=== PATIENT | female | born 1940 | race Caucasian/White ===

== ENCOUNTER 2024-08-07 19:17 | Inpatient (IN) | payer MEDICARE, SELFPAY ==
[2024-08-07] VITALS (8 sets, daily range): BP systolic 126–147; BP diastolic 47–76; BMI 27.5; BMI 27.1
--- NOTE | 2024-08-07 15:28 | ED.GENMED ---
History of Present Illness
General
Chief Complaint: Change in Mental Status
Source: patient and ambulance crew
Exam Limitations: clinical condition
Time Seen by Provider: 08/07/24 15:07
History of Present Illness
History of Present Illness:
84 y/o F
from EMS
found on the ground today by family
she apparently was last seen on 08/05 evening by family according to EMS
pt has had a skin rash for weeks, blistering and scabbing
the pt apparently lives in hoarding conditions
she says she ambulates with a cane at baseline
she cannot recall exactly how she ended up on the ground
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
she is not having numbness now or pain
pt was soaked in urine
stable vitals
she believes it is december
Past History
Past History
ED Past Medical History: None
ED Past Surgical History: None
Social History
Tobacco: Non-smoker
Review of Systems
Review of Systems
Allergies reviewed?: Yes
Other source history: family
All Other Systems: Not applicable
Phy Exam
Physical Exam
Physical Exam:
GENERAL: Alert , very poorly kept, malodorous;
HEAD: NCAT
NECK: no midline tenderness, active ROM intact, no paraspinal muscle tenderness;
EYE: pupils equal and reactive, EOMs intact.
ENT: o/p clr, dry mouth no hemotympanum
CARDIAC: Regular rate and rhythm, no edema
LUNGS: Clear breath sounds bilaterally, no acute respiratory distress, no wheezes/rales/rhonchi
ABDOMEN: Soft, without focal tenderness, no r/g, no cvat
NEUROLOGICAL: Alert and oriented x 3, no focal neuro deficits, CN intact, 5/5 strength, sensation intact
SKIN: Warm and dry,
scabbed lesions all over body and some skin sloughing vs. bursed bullae vs. burned looking skin, bruising R back nontender
larged lesion is on RUE and R hip
scalded skin??
MUSCULOSKELETAL: No edema, well perfused.
PSYCH: Normal and appropriate interaction.
Sepsis
Sepsis Screening
Sepsis Assessment: Sepsis
Sepsis Screen
Sepsis Screen: Sepsis
Date: 08/07/24
Time: 23:18
Course
Orders/Labs/Results
Orders:
Orders
08/07/24 Dinner
Regular
At Your Request: Full Participation
08/07/24 15:21
Electrocardiogram (*1) Urgent
Reason for Study: Other
Other Reason for Exam: sepsis
Cardiac Monitoring- Treatment ONCE
EKG- Treatment ONCE
Mccormack Placement- Treatment ONCE
Reason for insertion: I&O's Critical Care
08/07/24 15:22
Vickie Hugger [Vickie Hugger-Treatment] ONCE
Patient's goal temperature:: 36.1 C
Additional Instructions:: Temperature and skin assessment per unit protocol
0.9% Sodium Chloride 1000 ml [Nss] 1,000 ml IV BOLUS
08/07/24 15:33
CT Cervical Spine W/o Iv Contr Urgent
Comment:
Reason For Exam: foud on ground
CT Chest/abd/pel W Iv Cont Urgent
Comment:
Reason For Exam: found on ground, bruising R posterior upper back,
CT Head W/o Iv Contrast Urgent
Comment:
Reason For Exam: found on ground, altered
08/07/24 15:34
COVID-19 Antigen Urgent
Source: Nasal Swab
CPK [Creatine Phosphokinase] Urgent
Complete Blood Count/With Diff Urgent
Comprehensive Metabolic Panel Urgent
Lactic Acid Q4H
Comment: CANCEL 2nd LACTIC ACID IF 1st LACTIC ACID IS LESS THAN 2
Magnesium Urgent
PTT Urgent
Prothrombin Time Urgent
Troponin I Urgent
Influenza A+B Rapid Molecular Urgent
MARIANN Source: Nasal Swab
Specimen Description:
08/07/24 15:38
Urinalysis Reflex To Culture Urgent
Date Specimen was Collected: 08/07/24
Time Specimen was Collected: 15:37
Urine Microscopic Reflex Cult Urgent
Urine Culture Urgent
MARIANN Source: U
Specimen Description:
Date Specimen was Collected: 08/07/24
Time Specimen was Collected: 15:37
08/07/24 15:46
Blood Culture Q30M
MARIANN Source: Blood/Venous
Specimen Description:
08/07/24 16:19
CefTRIAXone [Rocephin] 1,000 mg IV NOW STA
08/07/24 18:53
Enema As Directed
Type: Milk and molasses
Amount: 1
08/07/24 18:55
Admit/Transfer Patient As Directed
Co-Sign Provider:
Level of Care: Inpatient admission
Assign to:: Telemetry
Physician / Group: Tucker Burt
Diagnosis: hypothermia, change in mental, constipation
Reason for Telemetry: Arrhythmia
Date to Stop Telemetry: 08/10/24
Time to Stop Telemetry: 11:00
Reason for Hospitalization: hypothermia, change in mental, constipation
Expected length of stay greater than two midnights?: Yes
ELOS- Estimated Length of Stay in days: 3
I certify the patient meets the requirements for IP care: Yes
08/07/24 18:56
PRN Pain Medication Management As Directed
May give lesser potent ordered pain med per pt: Yes
preference::
Protocol:: Medication orders for pain may be administered in a
manner that supports deferring to patient preference
when the pt is:
- Requesting an ordered lesser potent pain medication.
Least to most potent pain medications are defined
as: acetaminophen < NSAID < tramadol < opioids
(morphine, oxycodone, hydromorphone).
- Requesting a lesser dose of the same medication IF
ORDERED.
- Requesting a less intrusive route of administration
if both routes are prescribed by the provider (PO <
IV).
08/07/24 18:57
Code Status As Directed
Resuscitation Status: Full Code
08/07/24 19:35
Lactic Acid Q4H
Comment: CANCEL 2nd LACTIC ACID IF 1st LACTIC ACID IS LESS THAN 2
08/07/24 20:53
Acetaminophen [Tylenol] 650 mg PO Q4HPRN PRN
Lactated Ringers [Lr] 1,000 ml IV 100 mls/hr
08/07/24 20:53
WOUND/OSTOMY CONSULT Routine
Reason for Consult: diffuse rash with openings over entire body
Activity As Directed
Activity Level: Out of Bed-Early Mobility
Orthostatic Vital Signs As Directed
Orthostatic VS Frequency: BID
Vital Signs As Directed
Frequency: Per unit guidelines
Weight As Directed
Frequency: Once
OT Consult [Ot Eval And Treat] Routine
PT Consult [Pt Eval And Treat] Routine
Activity Level: Out of Bed-Early Mobility
DX Deep Vein Thrombosis Video Routine
08/08/24 06:00
Complete Blood Count/No Diff IN AM
Comprehensive Metabolic Panel IN AM
Creatine Phosphokinase IN AM
Vitamin B12 IN AM
08/08/24 18:00
CefTRIAXone [Rocephin] 1,000 mg IV Q24H
Enoxaparin Sodium [Lovenox] 40 mg SC QPM
08/09/24 06:00
Complete Blood Count/No Diff IN AM
Comprehensive Metabolic Panel IN AM
08/10/24 06:00
Complete Blood Count/No Diff IN AM
Comprehensive Metabolic Panel IN AM
08/10/24 11:00
DC Protocol for Telemetry ONCE
Abnormal Lab Results
08/07/24 08/07/24
15:34 15:38
WBC 15.0 H 10^3/uL
(4.8-10.8)
MCHC 32.0 L g/dL
(33.0-37.0)
Plt Count 440 H 10^3/uL
(130-400)
MPV 11.3 H fL
(7.4-10.4)
Absolute Neuts (auto) 12.8 H 10^3/uL
(1.4-6.5)
Absolute Lymphs (auto) 1.1 L 10^3/uL
(1.2-3.4)
Absolute Monos (auto) 1.1 H 10^3/uL
(0.1-0.6)
Neutrophils % 85.1 H %
(42.2-75.2)
Lymphocytes % 7.1 L %
(20.5-51.1)
PT 14.7 H Sec
(11.4-14.6)
APTT 35.9 H Sec
(23.4-35.0)
Carbon Dioxide 21 L mmol/L
(22-30)
BUN 22 H mg/dl
(7-17)
Glucose 117 H mg/dl
(70-99)
AST 64 H U/L
(14-36)
Creatine Kinase 572 H U/L
(30-135)
Troponin I 0.042 H* ng/ml
Total Protein 5.3 L g/dl
(6.3-8.2)
Albumin 3.0 L g/dl
(3.5-5.0)
Urine Ketones 3+ A
(Negative)
Ur Occult Blood Reflex 3+ A
(Negative)
Leukocyte Esterase Rfl 3+ A
(Negative)
Urine RBC 7-10 A /HPF
(0-2)
Urine WBC (Reflex) 26-30 A /HPF
(0-5)
Urine Bacteria (Reflex) Many A
(Negative)
Urine Albumin (Reflex) 3+ A
(Neg - Trace)
08/07/24 15:34
08/07/24 15:34
Vital Signs
Initial and Last Documented VS:
Initial Vital Signs
Temp Pulse Resp BP Pulse Ox
33.8 C L 81 20 128/60 92
08/07/24 15:11 08/07/24 15:11 08/07/24 15:11 08/07/24 15:11 08/07/24 15:11
Last Documented Vital Signs
Temp Pulse Resp BP Pulse Ox
35.4 C L 94 16 147/55 96
08/07/24 22:59 08/07/24 21:00 08/07/24 21:00 08/07/24 21:00 08/07/24 21:00
MDM/Problems Addressed
Differential Diagnosis Includes:
rhabdo, uti, sepsis, dehydration, scalded skin syndrome
MDM/Problems Addressed:
nicho wick 84 y/o F htn, hld but takes no meds; lives alone, hoarding conditions; family checks on her 1 time per week and bring food
she was found on ground today; prob fell monday night;
hypothermic 92, normal bp/other vitals
some mild confusion
bruising R upper back
no complaints
says she fell after having diarrhea and sitting on toilet and her leg fell asleep
she has a horrible rash that has been there prob a few weeks; may be contact derm from concentrated detergent; scabbed over some, some bullae that ruptured;
w/u here is wbc 15, urine +, cpk 500s; nl cr
trop minimal 0.04
lawrence scan neg.
rocephin, IVF, bairhugger
*Critical Care Note
Total Time (30-74mins, 75-104mins- exclusive of procedures): Not Applicable
ED Attending Note
-
Portions of this chart may have been created with voice recognition software.� Occasional wrong word or��sound alike� substitutions may have occurred due to the inherent limitations of voice recognition software.
Discharge Plan
Departure
Patient Disposition: Admit
Date of Disposition: 08/07/24
Time of Disposition: 17:21
Admit to: IMU
Presentation/result/management discussed w/ accepting MD/DO: Hospitalist
Condition: Fair
Covid-19: Negative COVID-19
Discharge Problem:
UTI (urinary tract infection), Sepsis, Rash, skin, Rhabdomyolysis
Interventions
Interventions:
*Risk Screen - Suicide Last Done: 08/07/24 19:29
*General Assessment Last Done: 08/07/24 15:58
*Neglect/Abuse Screening Last Done: 08/07/24 15:58
ED- Fall Risk Assessment Last Done: 08/07/24 21:00
*ED COVID-19 Vaccine History Last Done: 08/07/24 17:40
*Nursing Disposition Last Done: 08/07/24 21:00
ED- Pulmonary Assessment Last Done: 08/07/24 21:00
ED- Neurological Assessment Last Done: 08/07/24 17:37
ED- Cardiac Assessment Last Done: 08/07/24 21:00
Discharge Date and Time
Discharge Date/Time: 08/07/24 21:00
[2024-08-07 15:48] LABS: % Basophils 0.3 % (0-2); % Eosinophils 0.1 % (0-6); % Immature Granulocytes 0.3 % (0-0.5); % Lymphocytes 7.1 % (20.5-51.1); % Monocytes 7.1 % (1.7-9.3); % Neutrophils 85.1 % (42.2-75.2); Absolute Basophils 0.1 10^3/uL (0-0.2); Absolute Lymphocytes 1.1 10^3/uL (1.2-3.4); Absolute Monocytes 1.1 10^3/uL (0.1-0.6); Absolute Neutrophils 12.8 10^3/uL (1.4-6.5); Hematocrit 39.1 % (37.0-47.0); Hemoglobin 12.5 g/dL (12.0-16.0); Mean Corpuscular Volume 84.4 fL (81.0-99.0); Mean Platelet Volume 11.3 fL (7.4-10.4); Nucleated Red Blood Cells % 0 %; Platelet Count 440 10^3/uL (130-400); Red Blood Cell Count 4.63 10^6/uL (4.20-5.40); Red Cell Dist. Width 14.5 % (11.5-14.5)
[2024-08-07] MEDS: NSS 1000 IV (15:48)
[2024-08-07 15:56] LABS: Urine Albumin 3+ (Neg - Trace); Urine Bilirubin Negative (Negative); Urine Glucose Negative (Negative); Urine Ketone 3+ (Negative); Urine Leukocyte 3+ (Negative); Urine Nitrite Negative (Negative); Urine Occult Blood 3+ (Negative); Urine Specific Gravity 1.015 (<1.030); Urine Urobilinogen 1+ (Neg - 1+)
[2024-08-07 15:57] LABS: Urine Character Very Cloudy (Clear); Urine Color Yellow
[2024-08-07 15:58] LABS: PT 14.7 Sec (11.4-14.6)
[2024-08-07 15:59] LABS: APTT 35.9 Sec (23.4-35.0)
[2024-08-07 16:00] LABS: ALT (SGPT) 27 U/L (0-35); AST (SGOT) 64 U/L (14-36); Alkaline Phosphatase 112 U/L (38-126); Blood Urea Nitrogen 22 mg/dl (7-17); Calcium 8.8 mg/dl (8.4-10.2); Carbon Dioxide 21 mmol/L (22-30); Chloride 106 mmol/L (98-107); Creatine Phosphokinase 572 U/L (30-135); Estimated Creatinine Clearance 53 ml/min; Glucose 117 mg/dl (70-99); Magnesium 2.3 mg/dl (1.6-2.3); Sodium 140 mmol/L (135-145); Total Bilirubin 0.6 mg/dl (0.2-1.3); Total Protein 5.3 g/dl (6.3-8.2); eGFR > 60.00
[2024-08-07 16:12] LABS: COVID-19 Antigen Negative (Negative)
[2024-08-07 16:14] LABS: Troponin I 0.042 ng/ml
[2024-08-07 16:17] LABS: Urine Bacteria Many (Negative); Urine Squamous Cell 16-20 /LPF (Few); Urine White Cell 26-30 /HPF (0-5)
[2024-08-07] MEDS: ROCEPHIN 1000 MG IV (17:26)
--- NOTE | 2024-08-07 18:03 | HPS.HSE ---
Family Physician
-
Family Physician: NOT KNOW UNKNOWN - PT DOES
Chief Complaint
-
change in mental status
History of Present Illness
Patient is a 84-year-old female with no significant past medical history who presented to [facility] ED for evaluation of change in mental status s/p fall and down for >24 hours. Patient son and daughter at bedside to assist with HPI.
Patient was last known at baseline Monday evening around 7-8pm. There was no contact with her yesterday (Monday) and family found her down this afternoon with a change in mental status. She mentioned to family that the 'witch' was there. Patient
presents with a diffuse rash and possible chemical burn over entire body. Daughter describes patient utilizing concentrated detergent to clean close and going through it in less than a week. Multiple open areas. Daughter reports multiple episodes of
diarrhea in the past week, with some incontinence. Patient denies any fever, chills, cough, chest pain, nausea, vomiting, constipation or urinary symptoms.
Medical History
Past Medical History
Past Medical History: Reports None
Past Surgical History: Reports None
Social History
Tobacco: Former Smoker
Alcohol: None
Drug: None
Living: Alone
Family History
Family History: Not pertinent and Unable to Obtain
Allergies / Home Medications
Allergies reflects when Allergies were last updated in [facility].
Home Medications with original date entered in [facility]
Allergy/Medication List:
Allergies
Allergy/AdvReac Type Severity Reaction Status Date / Time
adhesive Allergy Rash Verified 02/15/17 14:18
Home Medications
ascorbic acid (vitamin C) 500 mg tablet (Vitamin C) 500 mg PO DAILY 08/07/24
cholecalciferol (vitamin D3) 25 mcg (1,000 unit) tablet (Vitamin D3) 25 mcg PO DAILY 08/07/24
garlic 100 mg tablet 100 mg PO DAILY 08/07/24
multivitamin 1 tab PO DAILY 08/07/24
selenium 50 mcg tablet 50 mcg PO DAILY 08/07/24
turmeric 400 mg capsule 1 mg PO DAILY 08/07/24
Review of Systems
-
History Source: Patient and Family
Constitutional: Reports No Symptoms
EENT: Reports No Symptoms
Respiratory: Reports No Symptoms
Cardiac: Reports No Symptoms
Abdomen/GI: Reports Diarrhea
: Reports No Symptoms
Musculoskeletal: Reports No Symptoms
Skin: Reports Itching and Rash (diffuse over entire body )
Neurological: Reports No Symptoms
Endocrine: Reports No Symptoms
Hematologic/Lymphatic: Reports No Symptoms
Psych: Reports No Symptoms
Physical Exam
Vital Signs
Vital Signs
Temp Pulse Resp BP Pulse Ox
92.9 F L 89 4 130/64 96
08/07/24 15:11 08/07/24 17:37 08/07/24 15:21 08/07/24 15:47 08/07/24 17:37
Physical Exam
General: Well Developed, Well Nourished, No Apparent Distress, Comfortable and Conversant
HEENT: NormoCephalic, Moist mucous membranes, Atraumatic, [place] Conjunctivae, Nose Appears Normal and Ears Appear Normal
Respiratory: Clear and Non Labored Respirations
Cardiac: S1/S2 and Regular Rhythm; No Murmur, Rub or Gallop
Breast: Deferred by me
GI: Soft, Non Tender and Non Distended; No Organomegaly
Rectal: Deferred by Provider
Genito-urinary: Deferred by me
Musculoskeletal: No Clubbing, No Cyanosis and No Edema
Skin: Warm, Rash (diffuse rash with openings over entire body) and IV/Catheter Site
Neuro: Awake, Alert, AO x 3 and Nonfocal/grossly intact
Psych: Calm
Laboratory Results
-
08/07/24 15:34
08/07/24 15:34
Laboratory Results
PT 14.7 Sec (11.4-14.6) H 08/07/24 15:34
INR 1.10 08/07/24 15:34
APTT 35.9 Sec (23.4-35.0) H 08/07/24 15:34
Lactic Acid 2.0 mmol/L (0.7-2.0) 08/07/24 15:34
Total Bilirubin 0.6 mg/dl (0.2-1.3) 08/07/24 15:34
AST 64 U/L (14-36) H 08/07/24 15:34
ALT 27 U/L (0-35) 08/07/24 15:34
Alkaline Phosphatase 112 U/L (38-126) 08/07/24 15:34
Troponin I 0.042 ng/ml H* 08/07/24 15:34
Data Reviewed
-
CT Scan: Report Reviewed by me (C-spine: No fracture identified. Degenerative changes.; Chest/Abd/Pelvis: No acute intrathoracic, abdominal, or pelvic injury appreciated. No osseous fracture. Degenerative changes, as described. Posterior upper
right chest wall soft tissue edema/contusion. Hiatal hernia. Rectal fecal impactio) and Other (Head CT: No acute intracranial abnormality noted. Chronic findings as described. No skull fracture.)
Medical Tests (Nuc Med, Echo, EKG etc): Report Reviewed by me (EKG: NORMAL SINUS RHYTHM RIGHT BUNDLE BRANCH BLOCK LEFT ANTERIOR FASCICULAR BLOCK BIFASCICULAR BLOCK MINIMAL VOLTAGE CRITERIA FOR LVH, MAY BE NORMAL VARIANT ( R in aVL ))
Lab Data: Labs Reviewed by me (WBC 15.0, CK 572, trop 0.042, )
Impression/Plan
-
IMPRESSION/PLAN:
#mechanical fall
#change in mental status
Head CT: No acute intracranial abnormality noted.
Chronic findings as described.
No skull fracture.
Chest/Abd/Pelvis CT: No acute intrathoracic, abdominal, or pelvic injury appreciated.
No osseous fracture.
Degenerative changes, as described.
Posterior upper right chest wall soft tissue edema/contusion.
Hiatal hernia.
Rectal fecal impaction.
Diverticulosis without acute diverticulitis.
C-Spine CT: No fracture identified.
Degenerative changes.
EKG: NORMAL SINUS RHYTHM
RIGHT BUNDLE BRANCH BLOCK
LEFT ANTERIOR FASCICULAR BLOCK
BIFASCICULAR BLOCK
MINIMAL VOLTAGE CRITERIA FOR LVH, MAY BE NORMAL VARIANT ( R in aVL )
WBC 15.0
CK 572
Trop 0.042
- Admit to telemetry
- LR 100cc/hr
- ECHO in AM
- orthostatic VS
- consult wound care
- consult PT/OT
- IV Rocephin
- AM labs
#constipation
Chest/Abd/Pelvis CT: No acute intrathoracic, abdominal, or pelvic injury appreciated.
No osseous fracture.
Degenerative changes, as described.
Posterior upper right chest wall soft tissue edema/contusion.
Hiatal hernia.
Rectal fecal impaction.
Diverticulosis without acute diverticulitis.
- MOM enema
- if MOM ineffective in 6 hours consider another enema
#hypothermia
T 92.9
- karol hugger
Code status: Full code
DVT prophylaxis: Lovenox sq
[2024-08-07 19:51] LABS: Lactic Acid 1.2 mmol/L (0.7-2.0)
--- NOTE | 2024-08-07 21:12 | W.PN.UPDATE ---
Update Note
Progress Note Update
This note serves as an addendum to the H&P by Chiqui Crowley on August 07, 2024.
History of Presenting Illness
84-year-old female with no significant past medical history (confirmed by patient's son and daughter) who presented to [facility] ED for evaluation of change in mental status s/p fall and down for >24 hours. Patient son and daughter were
present in the emergency room and helped with the history. Patient was last known at baseline about 44 hours prior to presentation. There was no contact with her yesterday (Monday) and family found her down this afternoon with a change in mental
status. Patient presents with a diffuse rash and possible chemical skin reaction over her entire body. Daughter described patient utilizing concentrated detergent to clean clothes and going through it in less than a week. Multiple open areas.
Daughter reports multiple episodes of diarrhea in the past week, with some incontinence. Patient denies any fever, chills, cough, chest pain, nausea, vomiting, constipation or urinary symptoms.
Vital Signs
Hypothermia into the low 90s
Physical Exam
General: Not in acute distress
HEENT: Normocephalic
Respiratory: Clear and Non Labored Respirations
Cardiac: S1/S2 and Regular Rhythm]
GI: Soft, Non Tender and Non Distended; No Organomegaly
Rectal: Deferred by Provider
Genito-urinary: Deferred by me
Musculoskeletal: No Clubbing, No Cyanosis and No Edema
Skin: Warm, Rash (diffuse rash with openings over entire body) and IV/Catheter Site
Neuro: Awake, Alert, AO x 3 and Nonfocal/grossly intact
Psych: Calm
Assessment/Plan
#Fall, found down on floor
#Change in mental status
Head CT: No acute intracranial abnormality noted.
Chronic findings as described.
No skull fracture.
Chest/Abd/Pelvis CT: No acute intrathoracic, abdominal, or pelvic injury appreciated.
No osseous fracture.
Degenerative changes, as described.
Posterior upper right chest wall soft tissue edema/contusion.
Hiatal hernia.
Rectal fecal impaction.
Diverticulosis without acute diverticulitis.
C-Spine CT: No fracture identified.
Degenerative changes.
EKG: NORMAL SINUS RHYTHM
RIGHT BUNDLE BRANCH BLOCK
LEFT ANTERIOR FASCICULAR BLOCK
BIFASCICULAR BLOCK
MINIMAL VOLTAGE CRITERIA FOR LVH, MAY BE NORMAL VARIANT ( R in aVL )
WBC 15.0
CK 572
Trop 0.042
- Admit to telemetry
- LR 100cc/hr
- ECHO in AM
- orthostatic VS
- consult wound care
- consult PT/OT
- IV Rocephin
- Check Vitamin B12
- Recheck CK
- AM labs
#Constipation
Chest/Abd/Pelvis CT: No acute intrathoracic, abdominal, or pelvic injury appreciated.
No osseous fracture.
Degenerative changes, as described.
Posterior upper right chest wall soft tissue edema/contusion.
Hiatal hernia.
Rectal fecal impaction.
Diverticulosis without acute diverticulitis.
- Fecal impaction was not able to be fully done in the ER, as not much stools came out
- MOM enema at the time of admission
- if MOM enema ineffective in 6 hours consider repeat enema
#Concern for Urinary Tract Infection
#Acute Toxic Metabolic Encephalopathy Suspected Secondary to UTI
-Continue Rocephin -- patient received 1st dose on 08/07/24 in the ER
-Follow urine and blood cultures
#Hypothermia
- Temp 92.9 F at the time of admission
- Vickie hugger as needed
- Check cortisol and TSH in the morning
#Generalized Skin Rash, Scratch Still from Itching (appears patient scratched herself), wounds
-Consulted wound care
Code status: Full code
DVT prophylaxis: Lovenox sq
[2024-08-07] MEDS: LR 1000 IV (23:19)
[2024-08-07] MEDS: ZYRTEC 5 MG PO (23:20)
[2024-08-07] MEDS: TYLENOL 650 MG PO (23:20)
--- NOTE | 2024-08-08 00:18 | PTCARENOTE ---
2129; Pt admitted to room 321. Pulled over into bed with assist x3. pt's daughter and son at bedside assisted with admission questions. pt aaox3, pt's family admits to some recent forgetfulness, bed alarm placed for safety. provided pt with boxed
lunch. Mccormack catheter draining clear yellow urine. unable to obtain temperature orally, rectally pt's temperature is 95.7, Vickie hugger placed.
Pt's b/l arms, b/l legs, back and abdomen covered in weeping blisters vs herrmann. Pt's family stated that she finished a concentrated bottle of laundry detergent within a couple days. Pt c/o moderate pain throughout whole body, itching and sore. CHEMIST ASSISTANT
Aldo notified, requested to come evaluate patient, awaiting arrival. Received STAT one time order for Zyrtec (refer to MAR). Pt's gown and sheets sticking to her skin, she continues to offer significant complaints with movement, refer to MAR for
Tylenol administration.
0015; Awaiting requested DIRECTOR OF GLOBAL SALES arrival to floor. This RN consulted two staff members and nursing supervisor rolling room regarding wound care overnight. Nursing supervisor rolling room in room to assess patient's skin. Nursing supervisor rolling room readdressed admission status with
providers. At this time pt to remain telemetry. Requested assistance of ICU provider regarding wound care, Xerofoam dressing placed on open wounds, secured with kerlix.
Plan of care ongoing.
--- NOTE | 2024-08-08 02:00 | WOUNDNOTE ---
KNEES (PHOTO TAKEN BY FRANCISCO GARCIA)
--- NOTE | 2024-08-08 02:00 | WOUNDNOTE ---
R LEG (LATERAL) (PHOTO TAKEN BY FRANCISCO GARCIA)
--- NOTE | 2024-08-08 02:00 | WOUNDNOTE ---
FEET (PHOTO TAKEN BY FRANCISCO GARCIA)
--- NOTE | 2024-08-08 02:00 | WOUNDNOTE ---
Citlali WRIGHT (PHOTO TAKEN BY FRANCISCO GARCIA)
--- NOTE | 2024-08-08 02:18 | PTCARENOTE ---
0200; Wound care completed to blisters vs herrmann covering pt's body -b/l legs, b/l arms, back, sacrum. Prior to completing, verified with JOHN Carlson, verbally confirmed. Pt's entire body rinsed with sterile saline, patted dry with towels, xerofoam
dressings placed and covered with Kerlix.
Discussed with pt at length the x1time enema that is ordered. Despite education pt is refusing enema currently, stating 'everything is hurting, I can't do it right now, this is all too much.' Since admission pt has drank eight 480mL cups of water.
Plan of care ongoing.
[2024-08-08 03:00] VITALS: BP 152/60
--- NOTE | 2024-08-08 03:44 | PTCARENOTE ---
knee high scds not placed on patient due to significant wounds and pain
[2024-08-08 07:03] LABS: Hematocrit 31.9 % (37.0-47.0); Hemoglobin 10.6 g/dL (12.0-16.0); Mean Corp Hgb Conc. 33.2 g/dL (33.0-37.0); Mean Corpuscular Hgb 27.4 pg (27.0-31.0); Mean Corpuscular Volume 82.4 fL (81.0-99.0); Mean Platelet Volume 11.4 fL (7.4-10.4); Platelet Count 337 10^3/uL (130-400); Red Blood Cell Count 3.87 10^6/uL (4.20-5.40); Red Cell Dist. Width 14.4 % (11.5-14.5); White Blood Cell Count 11.7 10^3/uL (4.8-10.8)
[2024-08-08 07:30] LABS: ALT (SGPT) 27 U/L (0-35); AST (SGOT) 63 U/L (14-36); Albumin 2.4 g/dl (3.5-5.0); Alkaline Phosphatase 91 U/L (38-126); Blood Urea Nitrogen 22 mg/dl (7-17); Calcium 8.2 mg/dl (8.4-10.2); Carbon Dioxide 20 mmol/L (22-30); Chloride 104 mmol/L (98-107); Creatine Phosphokinase 288 U/L (30-135); Estimated Creatinine Clearance 53 ml/min; Glucose 78 mg/dl (70-99); Magnesium 2.2 mg/dl (1.6-2.3); Potassium 3.9 mmol/L (3.5-5.1); Sodium 135 mmol/L (135-145); Total Bilirubin 0.4 mg/dl (0.2-1.3); Total Protein 4.5 g/dl (6.3-8.2); eGFR > 60.00
[2024-08-08 08:00] VITALS: BP 129/62
[2024-08-08 08:09] LABS: TSH Reflex To Free T4 1.97 uIU/ml (0.47-4.68)
[2024-08-08 08:28] LABS: Vitamin B12 938 pg/ml (239-931)
[2024-08-08 08:46] LABS: Cortisol, Random 60.9 ug/dl
[2024-08-08] MEDS: LR 1000 IV ×3 (08:55→22:39)
[2024-08-08] MEDS: VITAMIN B1 100 MG PO (08:55)
--- NOTE | 2024-08-08 09:38 | WOUNDNOTE ---
[facility] RN NOTE: Reviewed chart and spoke to FRANCISCO Chou and Gristmill Operator, Carissa. Per chart review patient has chemical herrmann throughout body due to heavy use of concentrated detergent. As documented, last night staff appropriately cleaned skin and
wounds and covered open areas with Xeroform and dry dressing. These orders were confirmed with Dr. Rouse and orders were updated. Plan is for Carissa to download pics to Madalyn Nicholson via TT. Patient for possible transfer to burn facility,
per Dr. Rouse. Will continue to follow during in-patient stay.
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
[2024-08-08] MEDS: ULTRAM 25 MG PO ×2 (11:12→16:36)
[2024-08-08 11:57] VITALS: BP 117/49
--- NOTE | 2024-08-08 12:16 | PTCARENOTE ---
Pt to room 3356 with blisters on body and BUE and BLE covered with xeroform dressings, Pt states Ultram helping with pain. Daughter at bedside.
--- NOTE | 2024-08-08 12:20 | PTCARENOTE ---
Pt temp 97.8 no need for karol hugger at this time.
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
--- NOTE | 2024-08-08 13:01 | PTCARENOTE ---
Pt co of left knuckle blister painfulmdaughter asking if we canput something on it, Dr Cespedes tt
--- NOTE | 2024-08-08 13:06 | PTCARENOTE ---
Pt and family aware that there is nothing to put on the blister.
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
[2024-08-08] MEDS: LOVENOX 40 MG SC (17:20)
[2024-08-08 17:26] VITALS: BP 129/61
[2024-08-08 22:16] VITALS: BP 98/71
[2024-08-08] MEDS: ANCEF 5 IV (22:23)
[2024-08-08] MEDS: TYLENOL 650 MG PO (22:23)
[2024-08-09] VITALS (11 sets, daily range): BP systolic 95–153; BP diastolic 51–77
[2024-08-09] MEDS: ULTRAM 25 MG PO (02:42)
[2024-08-09] MEDS: LR 1000 IV ×2 (05:10→11:31)
[2024-08-09] MEDS: DILAUDID 0.25 MG IV ×2 (05:18→10:06)
--- NOTE | 2024-08-09 06:30 | PTCARENOTE ---
Notified SARA Velazquez that positive blood culture in progress.
Pt O2 dropped to 87% while sleeping. Notified SARA Velazquez and received order for oxygen. Pt on 2L sating 94%
Pt received PRN Ultram for 5/10 pain throughout her whole body. Prior to dressing change, pt was not due for pain med. Pt was in 10/10 pain during turns and this RN notified SARA Velazquez and received one time does for Dilaudid prior to changing
dressing. Dressing change completed per Rx.
[2024-08-09] MEDS: ANCEF 5 IV (07:27)
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
[2024-08-09] MEDS: VITAMIN B1 100 MG PO (08:09)
--- NOTE | 2024-08-09 08:34 | VATNOTE ---
PICC line ordered at this time. Bilateral upper extremity ultrasounds ordered yesterday to rule out thrombus but cancelled. At the bedside to assess pt at this time. Pt has extensive wounds on both arms and both legs. Her IV site in her hand is
working and WNL, but placing a central line or a midline in the midst of such extensive skin breakdown would put the patient at too high a risk for infection. notified. IR consult for IJ recommended at this time.
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
--- NOTE | 2024-08-09 09:32 | PN.CDI ---
CDI
- -
CDI:
Physician Documentation Request
Admit Date: 08/07/24 19:17
Dear Doctor Padma,
Clinical Indicators:
Patient admitted hypothermia and toxic metabolic encephalopathy.
08/07 H & P, '...presented to [facility] ED for evaluation of change in mental status s/p fall and down for >24 hours'
08/09 PN, 'Elevated CK...CK trended down'
IVF: LR
CK trend:
08/07/24 08/08/24
15:34 06:14
Creatine Kinase 572 H 288 H D
Based on the above, could you clarify in the progress notes, the appropriate diagnosis, if significant, that supports the above abnormalities and additional evaluation, monitoring and/or treatment rendered:
Rhabdomyolysis (please specify non traumatic vs traumatic)
Elevated CK only
Other
Use of terms such as suspected, likely, concern for, or probable (associated with a specific diagnosis that is being evaluated, monitored, or treated as if it exists) are acceptable and can be coded in the inpatient setting, when documented at the
time of discharge.
Thank you,
Vidya De Jesus RN BSN
CDI Specialist
available via tiger text
Please use your independent medical judgment in providing your response.
--- NOTE | 2024-08-09 09:43 | PN.CDI ---
CDI
- -
CDI:
Physician Documentation Request
Admit Date: 08/07/24 19:17
Dear Doctor Padma,
Clinical Indicators:
Patient admitted hypothermia and toxic metabolic encephalopathy.
Troponin level:
08/07/24
15:34
Troponin I 0.042 H*
Based on the above, could you clarify in the progress notes, the appropriate diagnosis, if significant, that supports the above abnormalities and additional evaluation, monitoring and/or treatment rendered:
Non ischemic myocardial injury
Elevated troponin only
Other
Use of terms such as suspected, likely, concern for, or probable (associated with a specific diagnosis that is being evaluated, monitored, or treated as if it exists) are acceptable and can be coded in the inpatient setting, when documented at the
time of discharge.
Thank you,
Vidya De Jesus RN BSN
CDI Specialist
available via tiger text
Please use your independent medical judgment in providing your response.
--- NOTE | 2024-08-09 10:19 | PHA.VAN.IN ---
Assessment
- Assessment
Renal Function: Appears similar to baseline
Concomitant Antimicrobials: cefazolin
AUC Dosing Plan
- Dosing Variables
Dosing Weight (kg): 80
Dosing CrCl (ml/min): 53
Vd coefficient (L/kg): 0.7
- Empiric Dosing
Initial / Loading Dose: 2000mg - administration pending
Maintenance Regimen: Vanc 1250mg Q24H starting 08/10 599
Estimated AUC (mcg*h/mL): 478
Estimated Peak (mcg*h/mL): 32.5
Estimated Trough (mcg/ml): 10.9
Estimated Half Life (H): 14.3
- Monitoring
No levels ordered at this time: consider levels in next few days
Pharmacokinetics Vancomycin I
- -
Patient Age: 84
Patient Sex: Female
Vancomycin Day #: 1
Indication: Bacteremia
Requesting Provider: Dr. Petersen
Pertinent Antimicrobial Allergies:
no pertinent antibiotic allergies
Height / Weight:
Height 5 ft 8 in
Actual Weight 80.876 kg
- Vital Signs / Lab Results
Temp Pulse Resp BP Pulse Ox
97.6 F 87 19 140/74 92
08/09/24 07:30 08/09/24 08:13 08/09/24 08:13 08/09/24 08:13 08/09/24 08:13
Lab Results - Hematology
08/07/24 08/08/24
15:34 06:14
WBC 15.0 H 11.7 H
Lab Results - Chemistry
08/07/24 08/08/24
15:34 06:14
BUN 22 H 22 H
Creatinine 0.8 0.8
Estimated Creat Clear 53 53
Albumin 3.0 L 2.4 L
08/07/24 08/07/24
15:34 19:35
Lactic Acid 2.0 1.2
Lab Results - Urine
08/07/24
15:38
Urine Nitrite (Reflex) Negative
Leukocyte Esterase Rfl 3+ A
Urine WBC (Reflex) 26-30 A
Ur Squamous Epith Cells 16-20
Urine Bacteria (Reflex) Many A
Microbiology Results
08/07/24 19:40 Blood Culture - Preliminary
Blood/Venous Staphylococcus aureus
Gram Stain - Preliminary
08/07/24 15:38 Urine Culture - Preliminary
Urine
08/07/24 15:46 Blood Culture - Preliminary
Blood/Venous Positive culture in progress
Gram Stain - Final
08/07/24 15:34 Influenza Types A & B (CHELO) - Final
Nasal Swab Negative for Influenza A & B, NAAT
Negative results must be combined with clinical observations
and patient history.
Nucleic Acid Amplification test (NAAT)performed on the
[employer] platform.
[2024-08-09] MEDS: VANCOCIN 540 MG IV (11:28)
[2024-08-09] MEDS: VERSED 1 MG IV (12:15)
--- NOTE | 2024-08-09 13:25 | WOUNDNOTE ---
RIGHT 5th TOE
[2024-08-09 15:23] LABS: Hematocrit 28.8 % (37.0-47.0); Hemoglobin 9.3 g/dL (12.0-16.0); Mean Corp Hgb Conc. 32.3 g/dL (33.0-37.0); Mean Corpuscular Hgb 27.2 pg (27.0-31.0); Mean Corpuscular Volume 84.2 fL (81.0-99.0); Mean Platelet Volume 10.9 fL (7.4-10.4); Platelet Count 303 10^3/uL (130-400); Red Blood Cell Count 3.42 10^6/uL (4.20-5.40); Red Cell Dist. Width 14.5 % (11.5-14.5); White Blood Cell Count 9.6 10^3/uL (4.8-10.8)
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
[2024-08-09 15:35] LABS: ALT (SGPT) 26 U/L (0-35); AST (SGOT) 50 U/L (14-36); Albumin 2.1 g/dl (3.5-5.0); Alkaline Phosphatase 93 U/L (38-126); Blood Urea Nitrogen 22 mg/dl (7-17); Calcium 8.1 mg/dl (8.4-10.2); Carbon Dioxide 26 mmol/L (22-30); Chloride 102 mmol/L (98-107); Estimated Creatinine Clearance 42 ml/min; Glucose 98 mg/dl (70-99); Potassium 3.9 mmol/L (3.5-5.1); Sodium 132 mmol/L (135-145); Total Bilirubin 0.5 mg/dl (0.2-1.3); Total Protein 4.2 g/dl (6.3-8.2); eGFR 55.55
--- NOTE | 2024-08-09 15:45 | WOUNDNOTE ---
SACRUM (PHOTO TAKEN BY [facility] FRANCISCO LIMA)
[2024-08-09] MEDS: ANCEF 10 IV (16:05)
--- NOTE | 2024-08-09 16:15 | PTCARENOTE ---
Patient AOx3. Patient can be anxious at times. Patient on RA. VSS. NSR with first degree on monitor. +1 generalized edema. Mccormack draining yellow urine. Dressings for wounds intact. R side IJ. IVF running per order. Family at bedside. Call howard
within reach, bed in lowest position, and bed of wheels locked.
--- NOTE | 2024-08-09 16:16 | WOUNDNOTE ---
[facility] RN NOTE: Reviewed chart and met with patient. Per chart review the blisters are of unknown etiology and patient is being treated for septicemia. Patient with multiple open blisters of various stages of healing on back. At time of assessment,
arms and legs were covered with clean dry dressings as ordered. Back open blisters were cleaned and covered with Xeroform and ABD. Staff can also try cleaning wounds on arms and legs and applying Hydrogel and gently wrapping with white pads and
securing with spandage. Patient has stage 1 PI to sacrum and is able to turn self in bed with assistance. Patient reports falling at home but is unable to state the position she was laying in as she woke up in the ambulance. Heels are intact. Plan
continues to be for transfer to [facility] for dermatology evaluation. Hydrogel and Xeroform at bedside. Will updated orders. FRANCISCO Escoto given update.
[2024-08-09] MEDS: LOVENOX 40 MG SC (17:48)
[2024-08-09] MEDS: ALDACTONE 25 MG PO (17:48)
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
[2024-08-09] MEDS: TUMS CHEWABLE TABLET 200 MG PO (20:01)
[2024-08-09] MEDS: CITROMA PO (20:07)
--- NOTE | 2024-08-09 21:09 | PTCARENOTE ---
Patient c/o heart burn after eating a few bites of dinner. Fco provided per AUG. Mag citrate ordered. Education provided, daughter and son at bedside. Pt is hesitant to drink mag citrate d/t heart burn and having a BM on herself. Offered enema, pt
declined. JOHN Velazquez made aware. Pt educated again on the need to take the mag citrate. Pt made aware staff will be here to help her go on bedpan and help clean her. Pt agreed to take sips at a time. pt and family thankful. CB left within reach.
[2024-08-09] MEDS: CITROMA 300 ML PO (21:15)
[2024-08-10] VITALS (14 sets, daily range): BP systolic 116–150; BP diastolic 50–97; PULSE 82; O2SAT 94; BMI 27.1
[2024-08-10] MEDS: ANCEF 10 IV ×3 (01:05→16:44)
[2024-08-10] MEDS: LR 1000 IV (03:09)
[2024-08-10] MEDS: DILAUDID 0.25 MG IV (06:07)
[2024-08-10 06:24] LABS: Hematocrit 27.6 % (37.0-47.0); Mean Corp Hgb Conc. 32.6 g/dL (33.0-37.0); Mean Corpuscular Hgb 27.2 pg (27.0-31.0); Mean Corpuscular Volume 83.4 fL (81.0-99.0); Mean Platelet Volume 10.9 fL (7.4-10.4); Platelet Count 279 10^3/uL (130-400); Red Blood Cell Count 3.31 10^6/uL (4.20-5.40); Red Cell Dist. Width 14.3 % (11.5-14.5); White Blood Cell Count 7.7 10^3/uL (4.8-10.8)
[2024-08-10] MEDS: VANCOCIN 275 MG IV (06:37)
[2024-08-10 06:38] LABS: ALT (SGPT) 19 U/L (0-35); AST (SGOT) 43 U/L (14-36); Alkaline Phosphatase 75 U/L (38-126); Blood Urea Nitrogen 20 mg/dl (7-17); Carbon Dioxide 27 mmol/L (22-30); Estimated Creatinine Clearance 47 ml/min; Glucose 83 mg/dl (70-99); Potassium 4.1 mmol/L (3.5-5.1); Sodium 135 mmol/L (135-145); Total Bilirubin 0.3 mg/dl (0.2-1.3); Total Protein 3.9 g/dl (6.3-8.2); eGFR > 60.00
[2024-08-10 06:44] LABS: Chloride 104 mmol/L (98-107)
--- NOTE | 2024-08-10 07:02 | PTCARENOTE ---
Patient pre-medicated with Dilaudid IV prior to changing wound dressings. Unable to change arm and leg dressings d/t lack of Xeroform supplies. Chest, back, hip, breast & abd dressings changed this morning. Large amount of serous drainage present.
Pt refusing some turns overnight. Pt with congested cough. 2L NC HS. Right IJ dressing intact. Mccormack to gravity. NSR w/ 1st degree & BBB. Tolerating IV Abx. Call howard and tray table within reach.
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
[2024-08-10] MEDS: VITAMIN B1 100 MG PO (08:46)
[2024-08-10] MEDS: ALDACTONE 25 MG PO (08:46)
--- NOTE | 2024-08-10 08:52 | W.PN.CD ---
Today's Communication / Plan
-
Give IV lasix 20mg now
aldactone started
daily weights
i/o
fluid and sodium restriction
chf team consults
Impression / Plan
-
Bacteremia:
-staph aureus prelim
-ID following
-on IV ABX
-felt to be due to extensive skin wounds
Skin lesions:
-suspected to be bullous pemphigoid
-wound care is following and plan is for transfer for inpatient derm when bed available
HF mrEF:
-increased oxygen requirement
-Net positive 6L since admission
-CXR done but but poor effort, await official read does seem to have some interstitial prominance ?concurrent PNA
-will give a dose of IV lasix now and reassess.
-08/08/24 Echo: Mild concentric LVH. EF 45-50%. Stage I DD. Mild to moderate mitral regurgitation. Mild tricuspid regurgitation.
-eventual ischemic evaluation, but not now with bacteremia and open wound issues
-will start with GDMT, Patient hesitant to start more than one thing at once, will start with aldactone,Entresto is not covered by insurance , eventual SGLT2i($35.00), will avoid with active infection can start at outpatient.
Bifascicular block:
-follow telemetry and will need to continue to be monitored
pSVT: brief asx on tele
will monitor
Subjective:
She is sob, overnight desaturated. No cp or palpitations.
Physical Exam
Vital Signs/Labs
Vital Signs
Temp Pulse Resp BP Pulse Ox
97.7 F 86 18 150/66 96
08/10/24 07:12 08/10/24 08:46 08/10/24 06:00 08/10/24 08:46 08/10/24 06:00
08/10/24 06:01
08/10/24 06:01
PT 14.7 Sec (11.4-14.6) H 08/07/24 15:34
INR 1.10 08/07/24 15:34
APTT 35.9 Sec (23.4-35.0) H 08/07/24 15:34
Magnesium 2.2 mg/dl (1.6-2.3) 08/08/24 06:14
LAB Results
08/07/24
15:34
Troponin I 0.042 H*
Physical Exam
Constitutional: No acute distress
Cardiovascular: Rhythm & rate is regular and Pedal edema is absent (legs wrapped with dressing)
Respiratory: Respiratory effort normal, Wheeze Absent, Crackles Absent (left base) and Rhonchi Absent
Neuro/Psych: AO x 3
Data Reviewed
-
Date of Service: August 10, 2024
Medical Decision Making: Review of Case with other Provider (sinus on tele brief svt)
--- NOTE | 2024-08-10 09:05 | PHA.VAN.FU ---
Vancomycin Assessment / Plan
- Assessment
Renal Function: Stable
WBC's are: WNL
In the past 24 hrs, patient has been: Afebrile
Concomitant Antimicrobials: Cefazolin 2G
- Dosing Plan
Continue: Continue Vanco 1250mg Daily @0600
- Monitoring Plan
No level(s) ordered at this time: Consider in the next few days
Monitoring Comments: MRSA Swab negative, Pending New Blood Cx
- Follow Up
Pharmacy will continue to follow.
Vancomycin Follow UP
- -
Patient Age: 84
Patient Sex: Female
Vancomycin Day #: 2
Indication: Bacteremia
Requesting Provider: Dr. Petersen
Pertinent Antimicrobial Allergies:
no pertinent antibiotic allergies
Height / Weight:
Height 5 ft 8 in
Actual Weight 80.876 kg
- Vital Signs / Lab Results
Temp Pulse Resp BP Pulse Ox
97.7 F 86 18 150/66 96
08/10/24 07:12 08/10/24 08:46 08/10/24 06:00 08/10/24 08:46 08/10/24 06:00
Lab Results - Hematology
08/07/24 08/08/24 08/09/24
15:34 06:14 15:04
WBC 15.0 H 11.7 H 9.6
08/10/24
06:01
WBC 7.7
Lab Results - Chemistry
08/07/24 08/08/24 08/09/24
15:34 06:14 15:04
BUN 22 H 22 H 22 H
Creatinine 0.8 0.8 1.0
Estimated Creat Clear 53 53 42
Albumin 3.0 L 2.4 L 2.1 L
08/10/24
06:01
BUN 20 H
Creatinine 0.9
Estimated Creat Clear 47
Albumin 2.0 L
08/07/24 08/07/24
15:34 19:35
Lactic Acid 2.0 1.2
Microbiology Results
08/08/24 12:08 MRSA Screen - Final
Nose No Methicillin Resistant Staphylococcus aureus isolated.
08/07/24 19:40 Blood Culture - Preliminary
Blood/Venous Staphylococcus aureus
Gram Stain - Preliminary
08/07/24 15:38 Urine Culture - Preliminary
Urine
08/07/24 15:46 Blood Culture - Preliminary
Blood/Venous Positive culture in progress
Gram Stain - Final
[2024-08-10] MEDS: LR IV (09:06)
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
--- NOTE | 2024-08-10 09:24 | CM ---
notified cost of Luis and Marilee are $35.00 /mon . Entresto not covered.
[2024-08-10 10:40] LABS: NT-proBNP 7560 pg/ml
[2024-08-10] MEDS: LASIX 20 MG IV (10:59)
--- NOTE | 2024-08-10 14:27 | W.PN.ANES ---
Anesthesia Note
- -
08/10/24 14:27
Central Venous Line Placement, procedure note
Procedure performed on 08/09/24: between 12:15 and 12:45 pm.
CVL was requested by the primary team for lack of IV access.
Ultrasound guided Rt IJ CVL 7 Fr triple lumen placement
Procedure done with mild sedation: 1 mg versed IV
Area chloroprepped, maximum barrier protection as per standard protocol
Ultrasound guided procedure with direct visualization of needle into vein.
Seldinger technique.
Biopatch applied.
Patient tolerated the procedure well.
This note is written on behalf of Dr Brooks who performed the procedure.
08/10/24 14:38
[2024-08-10] MEDS: LOVENOX 40 MG SC (16:43)
[2024-08-10] MEDS: MUCINEX 600 MG PO (21:31)
[2024-08-11] VITALS (11 sets, daily range): BP systolic 120–149; BP diastolic 48–78; BMI 29.3
[2024-08-11] MEDS: ULTRAM 25 MG PO ×3 (00:02→19:48)
[2024-08-11] MEDS: ANCEF 10 IV ×3 (00:07→16:19)
--- NOTE | 2024-08-11 04:37 | PTCARENOTE ---
No acute events overnight. Pt premedicated with PRN Ultram for pain prior to wound care; pt's dressings with large amounts of serous drainage; wound care performed to pt's trunk and b/l lower arms, unable to complete pt's legs due to lack of
Xero[employer] supplies available. Pt's bedding soiled with drainage, bed change provided during wound care and fresh absorbant pads placed for pt comfort and to protect linen from moisture. Remains NSR on the monitor, SpO2 stable at 96% on 2L O2 NC. Pt
resting comfortably at this time, call howard on pt's bedside table within reach.
[2024-08-11 05:15] LABS: % Basophils 0.9 % (0-2); % Eosinophils 7.6 % (0-6); % Immature Granulocytes 1.5 % (0-0.5); % Monocytes 9.3 % (1.7-9.3); % Neutrophils 58.7 % (42.2-75.2); Absolute Basophils 0.1 10^3/uL (0-0.2); Absolute Eosinophils 0.6 10^3/uL (0-0.7); Absolute Immature Granulocytes 0.1 10^3/uL (0-0.05); Absolute Lymphocytes 1.8 10^3/uL (1.2-3.4); Absolute Monocytes 0.8 10^3/uL (0.1-0.6); Absolute Neutrophils 4.7 10^3/uL (1.4-6.5); Hematocrit 28.7 % (37.0-47.0); Hemoglobin 9.2 g/dL (12.0-16.0); Mean Corp Hgb Conc. 32.1 g/dL (33.0-37.0); Mean Corpuscular Hgb 27.1 pg (27.0-31.0); Mean Corpuscular Volume 84.4 fL (81.0-99.0); Nucleated Red Blood Cells % 0 %; Platelet Count 280 10^3/uL (130-400); Red Cell Dist. Width 14.5 % (11.5-14.5)
[2024-08-11 05:42] LABS: ALT (SGPT) 11 U/L (0-35); AST (SGOT) 36 U/L (14-36); Albumin 2.1 g/dl (3.5-5.0); Alkaline Phosphatase 81 U/L (38-126); Blood Urea Nitrogen 18 mg/dl (7-17); Calcium 8.2 mg/dl (8.4-10.2); Carbon Dioxide 28 mmol/L (22-30); Chloride 103 mmol/L (98-107); Estimated Creatinine Clearance 47 ml/min; Glucose 91 mg/dl (70-99); Magnesium 2.1 mg/dl (1.6-2.3); Potassium 3.8 mmol/L (3.5-5.1); Sodium 134 mmol/L (135-145); Total Bilirubin 0.5 mg/dl (0.2-1.3); Total Protein 4.2 g/dl (6.3-8.2); eGFR > 60.00
[2024-08-11] MEDS: VANCOCIN 275 MG IV (06:05)
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
[2024-08-11] MEDS: VITAMIN B1 100 MG PO (08:45)
[2024-08-11] MEDS: MUCINEX 600 MG PO ×2 (08:45→19:48)
[2024-08-11] MEDS: ALDACTONE 25 MG PO (08:45)
[2024-08-11] MEDS: LASIX 20 MG IV (08:45)
--- NOTE | 2024-08-11 10:20 | W.PN.HOSP.TC ---
Addendum entered and electronically signed by Tucker Rouse MD 08/14/24 12:01:
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
Original Note:
Today's Communication/Plan
-
Awaiting transfer to either [place] or [place]
Continue antibiotics and wound care
Assessment / Plan
Assessment / Plan
Physical Exam
General: Not in acute distress
HEENT: Normocephalic
Respiratory: Clear and Non Labored Respirations
Cardiac: S1/S2 and Regular Rhythm]
GI: Soft, Non Tender and Non Distended
Musculoskeletal: No Cyanosis and No Edema
Skin: Warm, Rash (diffuse rash with generalized skin ulcerations/erosions on chest, back, both upper extremities and bilateral lower extremities)
Neuro: Awake, Alert, AO x 3 and Nonfocal/grossly intact
Psych: Calm
Assessment/Plan
#Fall, found down on floor
#Change in mental status
#Elevated CK
#Posterior upper right chest wall soft tissue edema/contusion
- LR IV fluids stopped given SOB, hypoxia
- ECHO with EF 45% and diastolic dysfunction
- Wound care evaluation and recommendations appreciated
- Consult PT/OT
- Treat bacteremia
- Vitamin B12 high at 938
- TSH normal, cortisol at 60.9
- CK trended down
- AM labs
- Continue monitoring in IMU
#HFmrEF
#Dyspnea
#Hypoxia
#Productive Cough
- Suspected from IV fluids with cardiac ejection fraction in the 40s percent range
- IV fluids previously given but stopped recently
- CXR with mild pleural parenchymal airspace disease at the retrocardiac left lung base which may be atelectasis or minimal pneumonia
- Lasix IV 20 mg daily
- New to Aldactone
- Daily weights, I's and O's
- PO Fluid and Sodium restriction
- Cardiology following
- Mucinex
#Constipation/Fecal Impaction
#Diverticulosis
#Hiatal Hernia
- Fecal impaction was not able to be fully done in the ER, as not much stools came out
- Patient refused enema due to skin pain
- Colorectal surgery saw (on 08/09/24) patient and did manual disimpaction with removal of small amount of hard stool -- recommended milk of magnesia or magnesium citrate; then could continue Colace twice daily or
MiraLAX daily, since patient was able to tolerate LAURA, she will be able to tolerate enemas as needed
� If stool remains solid/formed, NO placement of rectal tube
� If stool becomes liquid, would prefer close nursing care due to risks associated with rectal tube, but would otherwise be able to tolerate rectal tube for short duration to prevent contamination of lower extremity wounds
- Per nurse, patient has been refusing enema and Mag Citrate
- Will order Miralax
#Reflux Symptoms
-Short course of prn Tums has been ordered -- monitor calcium and if calcium allows, can order more if needed
#Acute Toxic Metabolic Encephalopathy Suspected Secondary to Hypothermia - RESOLVED
#Hypothermia - RESOLVED
- Temp 92.9 F at the time of admission
- Continue Vickie hugger as needed -- has not needed it since 08/08/24 -- hypothermia has resolved
- Cortisol 60.9 and TSH normal
#MSSA and Aerococcus viridans bacteremia
#Urine culture in progress -Enterococcus and Streptococcus species recovered
- Extensive skin wounds are likely source of patient's bacteremia
- Continue Cefazolin and Vancomycin as per ID
- Appreciate ID
- Repeat blood cultures are negative so far
#Generalized Skin Rash with Skin Erosions, Scratch Still from Itching (appears patient scratched herself)
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
-No mucosal involvement noted
-Continue Cefazolin and Vancomycin
-Blood cultures are coming back positive 2/2: so far with MSSA and Aerococcus viridans bacteremia, repeat blood cultures are negative so far
-On 08/08/2024, due to initial concerns that patient might have had skin burn, I called [facility] Burn Surgeon Dr. Edin Rubin MD, who asked me to send him images of the patient's skin lesions,
and I explained to him that the lesions cover more than 50% of patient's body area: bilateral upper extremities, chest, back, bilateral lower extremities going down into feet, and also explained there were blisters that were
weeping. I sent Dr. Edin Rubin multiple different images of the patient's skin lesions from different areas of the patient's body. Dr. Rubin discussed with his physician colleagues and told me that patient definitely does not
have a burn, but rather patient has what appears to be Bullous Pemphigoid. Dr. Rubin recommended that I speak with hospitalist at [facility] so that patient can be transferred to [facility] for
inpatient dermatology evaluation (since we do not have inpatient dermatology here). I then spoke on 08/08/24 over the phone to hospitalist Dr. Jewell who accepted the patient for transfer to the 4c unit at [facility] [place].
-Challenges have been pain control with dressing changes, not enough supply of dressings, dressings taking very long to change, IV access (cannot do PICC line or Midline due to wounds), and now patient
has bacteremia -- I called [facility] again (transfer center phone number is [phone]) on 08/09/24 and updated them on all of this, and they said they will message accepting
hospitalist Dr. Duy Jewell there to see if he/[facility] can expedite transfer, I called a few times after that to update them and they said they will message provider.
-On 08/11/24, I spoke with transfer center coordinator Eva at [facility] and also on 08/11/24, I spoke with hospitalist Dr. Duy Jewell and updated him on the
details of patient's condition, and he said patient seems stable enough to go to a regular floor, so hopefully this could expedite transfer.
-I also called [facility] center at [phone] I spoke to them on 08/09/24 and 08/10/24; on 08/10/24 providers at [facility] declined transfer request due to
critical bed situation there
-I also called on 08/11/24 [facility], and spoke to transfer center coordinator Andrew ([place] [facility] phone number [phone]), and I spoke with [facility] oxidation engineer Dr. Salinas
Jerome (cellphone contact number [phone]) -- Dr. Cano requested images of the patient's wounds, so I sent them to her, she mentioned that it looks like Bullous Pemphigoid, but not skin burn; she said the first priority would
be a biopsy and immunofluorescence, and then steroids (treatment of choice) and other treatments could be considered. I also spoke to [facility] hospitalist Dr. Pierre who accepted the patient for
[facility] Level Bed at [facility]; I also spoke to [facility] Burn Unit Physician Dr. Encinas (cellphone number [phone]) who after looking at images of the patient's wound, agreed with Dr. Cano that
it looks like Bullous Pemphigoid; she mentioned there is [facility] to help with this and if anything more opened, then patient could be brought to
the burn unit there. Plan is for patient to be transferred to the Hospital Medicine service at [facility] and then Burn Specialist and Dermatology consulted.
-Consulted wound care, appreciate their management of patient's wound
Code Status: Full code
DVT Prophylaxis: Lovenox sq
Total time spent today on caring for the patient, including seeing and examining the patient, talking with the nurse, speaking with patient's family members, talking with physicians at [facility], reviewing orders, and
documentation was 120 minutes.
Anticipated Discharge: > 48 hours
Subjective/Interval History
-
Date of Service: August 11, 2024
Patient was seen and examined.
Objective Data
-
Labs:
Laboratory Results
08/11/24
04:59
WBC 8.0
Hgb 9.2 L
Hct 28.7 L
Plt Count 280
Sodium 134 L
Potassium 3.8
Chloride 103
Carbon Dioxide 28
BUN 18 H
Creatinine 0.9
Glucose 91
Calcium 8.2 L
Total Bilirubin 0.5
AST 36
ALT 11
Alkaline Phosphatase 81
Vital Signs:
Vital Signs
Temp Pulse Resp BP Pulse Ox
98.3 F 79 16 137/62 98
08/11/24 07:56 08/11/24 10:00 08/11/24 10:00 08/11/24 10:00 08/11/24 10:00
I&O
08/10/24 08/11/24 08/12/24
06:59 06:59 06:59
Intake Total 2950 / 2950
Output Total 1150 / 1150 1600 / 1600
Balance 1800 / 1800 -1600 / -1600
--- NOTE | 2024-08-11 11:00 | PTCARENOTE ---
Assumed care of patient this morning. Pt is aaox3, pleasant. On monitor, pt having frequent PACs, which monitor interprets as A-fib but she is in SR. 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 BP stable. Pt reports that pain with movement and wound
care. Pt rates 5/10 with that, medicated with Tramadol, see MAR. Will attempt the rest of wound care unable to be finished from technical mgr. Pt's family at bedside and updated when MD was in room. Family asking if patient can have water, family and
patient educated about fluid restriction, they verbalized understanding. Assessment, care and VS as charted.
--- NOTE | 2024-08-11 11:30 | PHA.VAN.FU ---
Vancomycin Assessment / Plan
- Assessment
Renal Function: Stable (Scr 0.9)
WBC's are: WNL (8.0)
In the past 24 hrs, patient has been: Afebrile
Concomitant Antimicrobials: Cefazolin
- Dosing Plan
Continue: Vanco 1250mg Q24H
- Monitoring Plan
Next Level Due (Date): Consider in the next few days
- Follow Up
Pharmacy will continue to follow.
Vancomycin Follow UP
- -
Patient Age: 84
Patient Sex: Female
Vancomycin Day #: 3
Indication: Bacteremia
Requesting Provider: Lorenzo Vinson
Pertinent Antimicrobial Allergies:
no pertinent antibiotic allergies
Height / Weight:
Height 5 ft 8 in
Actual Weight 87.3 kg
- Vital Signs / Lab Results
Temp Pulse Resp BP Pulse Ox
98.3 F 79 16 137/62 96
08/11/24 07:56 08/11/24 10:00 08/11/24 10:00 08/11/24 10:00 08/11/24 10:47
Lab Results - Hematology
08/09/24 08/10/24 08/11/24
15:04 06:01 04:59
WBC 9.6 7.7 8.0
Lab Results - Chemistry
08/09/24 08/10/24 08/11/24
15:04 06:01 04:59
BUN 22 H 20 H 18 H
Creatinine 1.0 0.9 0.9
Estimated Creat Clear 42 47 47
Albumin 2.1 L 2.0 L 2.1 L
Microbiology Results
08/07/24 15:46 Blood Culture - Preliminary
Blood/Venous Enterococcus species
Gram Stain - Final
08/09/24 15:04 Blood Culture - Preliminary
Blood/Venous No Growth in 24 hours- Final report to follow
08/09/24 15:04 Blood Culture - Preliminary
Blood/Venous No Growth in 24 hours- Final report to follow
08/07/24 19:40 Blood Culture - Preliminary
Blood/Venous S aureus-Methicillin Sensitive
Gram Stain - Preliminary
08/07/24 15:38 Urine Culture - Preliminary
Urine Enterococcus species
Streptococcus species
08/08/24 12:08 MRSA Screen - Final
Nose No Methicillin Resistant Staphylococcus aureus isolated.
--- NOTE | 2024-08-11 11:39 | W.PN.CD ---
Today's Communication / Plan
-
continue diuresis
Impression / Plan
-
HF mrEF:
-increased oxygen requirement
-Net positive 6L/~7kg since admission---responded nicely to lasix, negative 1600 in the last 24 hours
-Continue IV diuresis with intensive monitoring
-08/08/24 Echo: Mild concentric LVH. EF 45-50%. Stage I DD. Mild to moderate mitral regurgitation. Mild tricuspid regurgitation.
-eventual ischemic evaluation, but not now with bacteremia and open wound issues
-will start with GDMT, Patient hesitant to start more than one thing at once,
-will start with aldactone,
-Entresto is not covered by insurance
-eventual SGLT2i($35.00), will avoid with active infection can start at outpatient.
Bacteremia:
-staph aureus
-ID following
-on IV ABX
-felt to be due to extensive skin wounds
Skin lesions:
-suspected to be bullous pemphigoid
-wound care is following and plan is for transfer for inpatient derm when bed available
Bifascicular block:
-follow telemetry and will need to continue to be monitored
pSVT: brief asx on tele
will monitor
Subjective:
She thinks her breathing feels better. No cp or palpitations.
Physical Exam
Vital Signs/Labs
Vital Signs
Temp Pulse Resp BP Pulse Ox
98.3 F 79 16 137/62 96
08/11/24 07:56 08/11/24 10:00 08/11/24 10:00 08/11/24 10:00 08/11/24 10:47
08/10/24 08/11/24 08/12/24
06:59 06:59 06:59
Actual Weight 87.3 kg
08/11/24 04:59
08/11/24 04:59
PT 14.7 Sec (11.4-14.6) H 08/07/24 15:34
INR 1.10 08/07/24 15:34
APTT 35.9 Sec (23.4-35.0) H 08/07/24 15:34
Magnesium 2.1 mg/dl (1.6-2.3) 08/11/24 04:59
08/10/24
06:01
[id number] Pept 7560
Physical Exam
Constitutional: No acute distress
Cardiovascular: Rhythm & rate is regular and JVD pressure is normal
Respiratory: Respiratory effort normal, Lungs clear to auscul., Wheeze Absent, Crackles Absent and Rhonchi Absent
Neuro/Psych: AO x 3
Data Reviewed
-
Date of Service: August 11, 2024
EKG: Other (tele sinus with pvcs and pacs)
--- NOTE | 2024-08-11 14:12 | PTCARENOTE ---
Andrew from the [place] transfer center called and requested recent labs, H&P and a face sheet for the patient, which the unit assembler faxed to them #[phone]. Phone number #[phone]. They reported that Prior Auth is needed prior to transfer, CM
was sent a TT from the unit assembler, # for insurance [phone].
--- NOTE | 2024-08-11 14:47 | CM ---
Addendum entered by Diann Carranza 08/11/24 16:39:
Per Director, no prior authorization is needed for this patient. import clerk instructed to schedule ambulance transport
Original Note:
Gravel Weigher received a call from [facility]. Prior auth is needed from insurance before patient can be transfer over to [facility] phone # for Prior Auth - [facility] # [phone]
Electric Repair Supervisor will contact Utilization Review in the morning
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
--- NOTE | 2024-08-11 18:01 | W.PN.UPDATE ---
Update Note
Progress Note Update
I received a call from [facility] that a bed is available. Patient will be transferred to [facility] today, expected transport time between 7:30 pm and 8 pm. I updated the family about this.
[2024-08-11] MEDS: LOVENOX 40 MG SC (18:05)
--- NOTE | 2024-08-11 18:43 | PTCARENOTE ---
Attempted to call report to Taye, advised the nurse needed to call me back.
--- NOTE | 2024-08-11 19:19 | PTCARENOTE ---
Gave Report to Kenna at [facility] approx at [phone]. Called report to #[phone].
--- NOTE | 2024-08-11 21:41 | PTCARENOTE ---
Transport arrived to transfer patient at 2114. Discharge completed. Pt left floor via stretcher with all belongings.
--- NOTE | 2024-08-12 08:38 | PN.CDI ---
CDI
- -
CDI:
Physician Documentation Request
Admit Date: 08/07/24 19:17
Dear Doctor Padma,
Clinical Indicators:
Patient admitted hypothermia and toxic metabolic encephalopathy.
08/11 PN, ' LR IV fluids stopped given SOB, hypoxia...HFmrEF'
02 requirements: 2 L NC
Lasix 20 mg IV x 2 doses (08/10,08/11)
BNP:
08/10/24
06:01
[id number] Pept 7560
Please provide further specificity regarding the most likely type and acuity of CHF you are evaluating, treating or monitoring.
Acute HFmrEF
Chronic HFmrEF
Other, please specify
Use of terms such as suspected, likely, concern for, or probable (associated with a specific diagnosis that is being evaluated, monitored, or treated as if it exists) are acceptable and can be coded in the inpatient setting, when documented at the
time of discharge.
Thank you,
Vidya De Jesus RN BSN
CDI Specialist
available via tiger text
Please use your independent medical judgment in providing your response.
== END 2024-08-11 21:49 | disposition short-term general hospital (02) | DRG 595 ==
LOC: IMU 19:17
PROVIDERS: Nurse Practitioner Family; Physician Assistant; ADMITTING PHYSICIAN Hospitalist; CONSULT PHYSICIAN Internal Medicine Cardiovascular Disease; CONSULT PHYSICIAN Internal Medicine Infectious Disease; CONSULT PHYSICIAN Surgery; EMERGENCY PHYSICIAN Emergency Medicine
DX: L12.0 Bullous pemphigoid (principal); G92.8 Other toxic encephalopathy; J18.9 Pneumonia, unspecified organism; I50.23 Acute on chronic systolic (congestive) heart failure; R78.81 Bacteremia; I45.2 Bifascicular block; J98.11 Atelectasis; M62.82 Rhabdomyolysis; I5A Non-ischemic myocardial injury (non-traumatic); W19.XXXA Unspecified fall, initial encounter; B95.2 Enterococcus as the cause of diseases classified elsewhere; B95.61 Methicillin susceptible Staphylococcus aureus infection as the cause of diseases classified elsewhere; I11.0 Hypertensive heart disease with heart failure; R09.02 Hypoxemia; R06.00 Dyspnea, unspecified; K56.41 Fecal impaction; K57.30 Diverticulosis of large intestine without perforation or abscess without bleeding; K44.9 Diaphragmatic hernia without obstruction or gangrene; Z87.891 Personal history of nicotine dependence; Z11.52 Encounter for screening for COVID-19; T68.XXXA Hypothermia, initial encounter; X31.XXXA Exposure to excessive natural cold, initial encounter; I34.0 Nonrheumatic mitral (valve) insufficiency
CPT/HCPCS: 70450; 71045; 71260; 72125; 74018; 74177; 80053; 81003; 81015; 82533; 82550; 82607; 83605; 83735; 83880; 84443; 84484; 85025; 85027; 85610; 85730; 87040; 87070; 87077; 87086; 87150; 87186; 87205; 87502; 87811; 93005; 93306; 96374; 97163; 97167; 99285; Q9967